=== PATIENT | female | born 1980 | race Caucasian/White ===

== ENCOUNTER → 2023-01-29 09:02 | Outpatient (CLI) | payer OTHER, SELFPAY ==
[2023-02-02 12:08] LABS: I001-IgE Honey Bee 1.32 kU/L (Class II); I002-IgE Hornet, White Face 0.65 kU/L (Class II); I005-IgE Hornet Yellow 0.59 kU/L (Class II); Immunoglobulin E, Total 33 IU/mL (6-495)
== END ==
PROVIDERS: Visit Provider Nurse Practitioner
DX: L50.0 Allergic urticaria (principal); Z91.030 Bee allergy status
CPT/HCPCS: 36415; 82785; 86003